=== PATIENT | male | born 1980 | race Caucasian/White ===

== ENCOUNTER → 2017-08-12 14:32 | Outpatient (CLI) | payer OTHER ==
[~2017-08-12 14:32] MED LIST: AMOXICILLIN500 M1 PO; HYDROCODON-ACE1 EAC7 PO; LISINOPRIL10 MG PO
[2017-08-20 09:44] VITALS: BMI 25.8
== END | disposition home or self-care (01) ==
LOC: D.CT 14:30
DX: J18.9 Pneumonia, unspecified organism (principal)

== ENCOUNTER 2017-08-20 09:05 | Outpatient (CLI) | payer OTHER ==
[~2017-08-20] VITALS: Ht 182.9 cm; Wt 86.4 kg
[2017-08-20] MEDS ORDERED: AMOXICILLIN500 M1 PO (09:33)
[2017-08-20] MEDS ORDERED: LISINOPRIL10 MG PO (09:34)
[2017-08-20] MEDS ORDERED: HYDROCODON-ACE1 EAC7 PO (09:34)
[2017-08-20 09:44] VITALS: BP 136/85; Ht 182.9 cm; Wt 86.4 kg
[2017-08-20 10:04] LABS: BASOPHILS 1.1 % (0-2); EOSINOPHILS 3.2 % (0-7); HEMATOCRIT 46.9 % (42.0-54.0); HEMOGLOBIN 16.2 g/dL (13.5-17.5); IMMATURE GRANULOCYTES 0.4 % (0-5); LYMPHOCYTES 25.5 % (15-50); MCH 31.6 pg (26.0-34.0); MCHC 34.5 g/dL (31.0-37.0); MCV 91.4 fL (80.0-100.0); MONOCYTES 8.4 % (2-11); NEUTROPHILS 61.4 % (40-80); PLATELET COUNT 278 10x3/uL (130-400); RBC 5.13 10x6/uL (4.20-6.10); RDW 11.8 % (11.5-14.5); WBC 5.3 10x3/uL (4.8-10.8)
[2017-08-20 10:28] LABS: APTT 34.4 SECONDS (22.8-39.4); INR 0.96 (0.85-1.17); PROTIME 12.4 SECONDS (11.6-15.0)
--- NOTE | 2017-08-20 11:55 | NUR ---
PT REC'D TO ROOM VIA STRETCHER. AWAKE, ALERT, ORIENTED. IV INFUSING. HOB @30 DEGREES ORDERED. ADVISED PT NPO FOR 1 HOUR THEN MAY HAVE LIQUIDS.
--- NOTE | 2017-08-20 12:10 | NUR ---
RADIOLOGY HERE FOR PORTABLE CXR.
--- NOTE | 2017-08-20 12:37 | NUR ---
SEE FREQUENT VS SHEET FOR VITAL SIGNS.
--- NOTE | 2017-08-20 13:07 | NUR ---
FULL LIQ DIET PROVIDED.
--- NOTE | 2017-08-20 13:30 | NUR ---
TOLERATED DIET. NO NAUSEA, VOMITING. IV D/C'D CATH INTACT.
--- NOTE | 2017-08-20 13:48 | NUR ---
D/C INSTRUCTIONS EXPLAINED TO PT. VOICED UNDERSTANDING. COPIES OF ALL GIVEN. D/C'D HOME VIA W/C TO PRIVATE CAR.
[2017-08-21 15:14] LABS: FUNGUS STAIN Final report (())
[2017-08-21 19:09] LABS: AFB SPECIMEN PROCESSING Concentration (())
--- NOTE | 2017-08-22 14:06 | OP ---
PATIENT NAME: CHRISTINA CARTER MEDICAL RECORD: [id number] :82 LOCATION:D.OPS ADMISSION DATE: SURGEON: WANDA MARCELO MD DATE OF OPERATION: 08/20/2017 PROCEDURE: Fiberoptic bronchoscopy. PROCEDURE IN DETAIL: After obtaining conscious sedation, the bronchoscope was passed through the mouth. The epiglottis was normal. The vocal cords were normal, moved equally on phonation. The main trachea was normal. The tang was sharp. The left main bronchus was normal. The subsegments to the left upper lobe lingula within normal range. No endobronchial lesion was seen. No mucus plug was seen. The left lower segment was within normal range. No endobronchial lesion was seen. There were some bronchitic changes, which bled easily by touching the bronchoscope. The right main bronchus was normal. The subsegment to the right upper lobe, right middle lobe, right lower lobe within normal range. No endobronchial lesion was seen. MONITORING: EKG, pulse, blood pressure, and SpO2 were monitored throughout the procedure. MEDICATIONS: Versed 8 mg IV in divided doses, fentanyl 100 mcg IV in divided doses, atropine 0.6 mg IM, morphine 4 mg IM. SPECIMEN: Washing was obtained and sent for routine culture and sensitivity, AFB and fungus and cytology. c TRANSINT:[id number] Voice Confirmation ID: [id number] DOCUMENT ID: [id number] WANDA MARCELO MD at 1406 CC: VICKI GUERRERO MD [id number] DICTATION DATE: 08/20/17 1153 EXECUTIVE STAFF ASSISTANT: 08/20/17 1220 DEP CLI 08/20/17 [place] [id number]
[2017-09-17 07:27] LABS: FUNGUS MYCOLOGY CULTURE Final report (())
[2017-10-08 13:16] LABS: ACID FAST CULTURE Negative (()); ACID FAST SMEAR Negative (())
== END 2017-08-20 13:53 | disposition home or self-care (01) ==
LOC: D.OPS 09:05
PROVIDERS: Internal Medicine Pulmonary Disease
DX: J18.9 Pneumonia, unspecified organism (principal); Z01.812 Encounter for preprocedural laboratory examination